=== PATIENT | female | born 1985 | race Caucasian/White ===

== ENCOUNTER 2020-11-06 06:16 | Day surgery (SDC) | payer SELFPAY ==
[2020-11-04 13:07] VITALS: BMI 19.7
[2020-11-06] MEDS ORDERED: GENTAMICIN SO4 80 MG/2 ML VIAL ONE (07:11)
[2020-11-06] MEDS ORDERED: ceFAZolin SODIUM 1 GM VIAL ONE (07:11)
[2020-11-06] MEDS ORDERED: LIDOCAINE 1%/EPI 1:100000 (20 ML MULTI DOSE VIAL) ONE (07:29)
[2020-11-06] MEDS ORDERED: MIDAZOLAM HCL 2 MG/2 ML SINGLE DOSE VIAL ONE (07:49)
[2020-11-06] MEDS ORDERED: SUCCINYLCHOLINE CHLORIDE 200 MG/10 ML SYRINGE ONE (07:49)
[2020-11-06] MEDS ORDERED: PROPOFOL 20 ML ONE (07:49)
[2020-11-06] MEDS ORDERED: BUPIVACAINE HCL/PF 0.25% (2.5MG/ML) 10 ML VIAL ONE ×2 (08:20→08:33)
[2020-11-06] MEDS ORDERED: GUM MASTIC/STORAX/MSAL/ALCOHOL 1 DRP DROPSBTL MC ONE (08:47)
[2020-11-06] MEDS ORDERED: ONDANSETRON 4 MG/2 ML VIAL ONE (09:49)
[2020-11-06] MEDS ORDERED: PROMETHAZINE HCL 25 MG/1 ML VIAL IVPUSH PRN (10:01)
[2020-11-06] MEDS ORDERED: oxyCODONE HCL 5 MG TABLET PO PRN (10:01)
[2020-11-06] MEDS ORDERED: ONDANSETRON 4 MG/2 ML VIAL IVPUSH PRN (10:01)
[2020-11-06] MEDS ORDERED: LACTATED RINGERS SOLUTION 1,000 ML IV SCH (10:15)
[2020-11-06 12:14] VITALS: BP 102/58; PULSE 68; TEMP 97.9
== END 2020-11-06 12:14 | disposition home or self-care (01) ==
LOC: FASU 06:16
PROVIDERS: ATTEND Surgery Plastic and Reconstructive Surgery
CPT/HCPCS: 81025; 94760